=== PATIENT | female | born 1930 | race Caucasian/White ===

== ENCOUNTER 2017-02-19 18:55 | Observation (INO) | payer MEDICARE, MEDICAID ==
[2017-02-19] MEDS ORDERED: Sodium Chloride 0.9% 10 ML Syringe FLUSH PRN ×2 (20:08→20:25)
[2017-02-19] MEDS ORDERED: HYDROmorphone 0.5 MG/0.5 ML Syringe IVPUSH ONE (20:10)
[2017-02-19] MEDS ORDERED: Ondansetron 4 MG/2 ML SDV IVPUSH ONE (20:10)
--- NOTE | 2017-02-19 20:13 | EDM.PDOC ---
ED HPI GENERAL MEDICAL PROBLEM - General Chief Complaint: Gastrointestinal Problem Stated Complaint: VOMITING Time Seen by Provider: 02/19/17 20:01 Source of Information: Reports: Patient, Family, RN Notes Reviewed History Limitations: Reports: No Limitations - History of Present Illness INITIAL COMMENTS - FREE TEXT/NARRATIVE: 86-year-old female presents emergency department day complaint of nausea vomiting and abdominal pain, she states been ill for the last 3 days it has progressively getting worse initially she had bowel movements but that now has stopped denies any flatulence. Denies any fevers unable to keep food or water down Abdomen Pain Score (Numeric/FACES): 8 - Related Data Allergies Allergy/AdvReac Type Severity Reaction Status Date / Time Sulfa (Sulfonamide Allergy Intermediate Swelling Verified 02/23/15 06:44 Antibiotics) cefazolin Allergy Cannot Verified 02/21/15 11:11 Remember Penicillins Allergy Cannot Verified 02/21/15 11:11 Remember codeine AdvReac Intermediate Nausea and Verified 02/21/15 11:11 Vomiting cephalexin [Cephalexin] AdvReac Nausea Verified 02/21/15 11:11 Home Meds: Home Meds Insulin Glarg,Human.Rec.Analog [Lantus Solostar] 5 units SUBCUT DAILY 05/06/14 [ History] Lisinopril 5 mg PO DAILY 05/06/14 [History] Raloxifene [Evista] 60 mg PO DAILY 05/06/14 [History] Pantoprazole [Protonix] 40 mg PO DAILY #30 tab.cr 11/11/14 [Rx] Insulin Aspart [NovoLOG] 4 unit SQ QID PRN 02/21/15 [History] Omeprazole [Prilosec] 40 mg PO DAILY 02/21/15 [History] glyBURIDE [Micronase] 2.5 mg PO DAILY 02/21/15 [History] Past Medical History Gastrointestinal History: Reports: Other (See Below) Other Gastrointestinal History: hx of ulcer Genitourinary History: Reports: Urinary Incontinence 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: Musculoskeletal History: Reports: Fracture Other Musculoskeletal History: r knee fx Endocrine/Metabolic History: Reports: Diabetes, Type II Other Dermatologic History: "sore on shoulder that has been there for awhile" - Infectious Disease History Infectious Disease History: Reports: Chicken Pox, Measles, Mumps - Past Surgical History Other HEENT Surgeries/Procedures: teeth extraction GI Surgical History: Reports: Cholecystectomy, Colonoscopy Social & Family History - Tobacco Use Smoking Status *Q: Never Smoker Second Hand Smoke Exposure: No - Caffeine Use Caffeine Use: Reports: Coffee, Soda, Tea - Alcohol Use Days Per Week of Alcohol Use: 0 - Recreational Drug Use Recreational Drug Use: No ED ROS GENERAL - Review of Systems Review Of Systems: See Below Constitutional: Reports: Decreased Appetite. Denies: Fever, Chills HEENT: Reports: No Symptoms Respiratory: Reports: No Symptoms Cardiovascular: Reports: No Symptoms GI/Abdominal: Reports: Abdominal Pain, Nausea, Vomiting. Denies: Constipation, Diarrhea, Flatus : Reports: No Symptoms Musculoskeletal: Reports: No Symptoms Skin: Reports: No Symptoms ED EXAM, GI/ABD - Physical Exam Exam: See Below Text/Narrative:: General: Female, not in any distress, alert and oriented x3 HEENT: head is atraumatic normocephalic, eyes pupils equal round reactive to light, sclera clear no conjunctivitis appreciated. Ears tympanic membranes clear and [place] landmarks and light reflex are present bilaterally canals are clear. Nose no septal deviation, nares are clear, no blood present. Mouth mucosa is moist and pink no erythema or exudate noted in soft palate, tongue is midline uvula is midline, dentition is intact. Neck: Supple no thyromegaly no tracheal deviation. Nodes: Cervical nodes subclavicular nodes nontender no palpable lymphadenopathy noted. Lungs: clear to auscultation bilaterally with symmetrical respirations, no adventitious noise appreciated. CV: Regular rate and rhythm S1 and S2 appreciated no murmurs rubs or gallops noted. Abdomen: Soft, generalized tenderness to palpation, no palpable masses or organomegaly appreciated, no distention no guarding bowel sounds are absent, multiple surgical scars clean dry and intact. Neuro: Cranial nerves II through XII grossly intact Skin: Warm and dry, intact Extremities: No lower extremity edema appreciated, . Course - Vital Signs Last Recorded V/S: Last Vital Signs Temp 96.4 F 02/19/17 21:52 Pulse 81 02/19/17 21:52 Resp 16 02/19/17 21:52 BP 139/88 02/19/17 21:52 Pulse Ox 96 02/19/17 21:52 - Orders/Labs/Meds Orders: Active Orders 24 hr Category Date Time Status Peripheral IV Care [RC] . DIRECTED Care 02/19/17 20:09 Active Abdomen Pelvis w Cont [CT] Stat Exams 02/19/17 20:11 Ordered Abdomen Pelvis wo Cont [CT] Stat Exams 02/19/17 20:53 Taken CULTURE URINE [RM] Urgent Lab 02/19/17 22:44 Ordered Lactated Ringers [Ringers, Lactated] 1,000 ml Med 02/19/17 20:15 Active IV ASDIRECTED Lactated Ringers [Ringers, Lactated] 1,000 ml Med 02/19/17 22:48 Ordered IV BOLUS Sodium Chloride 0.9% [Saline Flush] Med 02/19/17 20:08 Active 10 ml FLUSH ASDIRECTED PRN Sodium Chloride 0.9% [Saline Flush] Med 02/19/17 20:25 Active 10 ml FLUSH ONETIME PRN Peripheral IV Insertion Adult [OM.PC] Urgent Oth 02/19/17 20:08 Ordered Medication Orders Lactated Ringer's (Ringers, Lactated) 1,000 mls @ 500 mls/hr IV ASDIRECTED TIMOTHY Last Admin: 02/19/17 20:28 Dose: 500 mls/hr Lactated Ringer's (Ringers, Lactated) 1,000 mls @ 500 mls/hr IV BOLUS ONE Stop: 02/20/17 00:47 Sodium Chloride (Saline Flush) 10 ml FLUSH ASDIRECTED PRN PRN Reason: Keep Vein Open Sodium Chloride (Saline Flush) 10 ml FLUSH ONETIME PRN PRN Reason: PER RADIOLOGY PROTOCOL Labs: Laboratory Tests 02/19/17 02/19/17 02/19/17 Range/Units 20:19 20:19 20:19 WBC 10.2 (4.5-11.0) K/uL RBC 4.54 (3.30-5.50) M/uL Hgb 11.2 L (12.0-15.0) g/dL Hct 36.8 (36.0-48.0) % MCV 81 (80-98) fL MCH 25 L (27-31) pg MCHC 30 L (32-36) % Plt Count 278 (150-400) K/uL Neut % (Auto) 81 H (36-66) % Lymph % (Auto) 13 L (24-44) % [place] % (Auto) 5 (2-6) % Eos % (Auto) 1 L (2-4) % Baso % (Auto) 0 (0-1) % Sodium 138 L (140-148) mmol/L Potassium 3.8 (3.6-5.2) mmol/L Chloride 100 (100-108) mmol/L Carbon Dioxide 31 (21-32) mmol/L Anion Gap 10.8 (5.0-14.0) mmol/L BUN 15 (7-18) mg/dL Creatinine 1.3 H (0.6-1.0) mg/dL Est Cr Clr Drug Dosing 22.73 mL/min Estimated GFR (MDRD) 39 L (>60) Glucose 148 H (74-106) mg/dL Lactic Acid 1.8 (0.4-2.0) mmol/L Calcium 8.6 (8.5-10.1) mg/dL Total Bilirubin 0.3 (0.2-1.0) mg/dL AST 13 L (15-37) U/L ALT 12 (12-78) U/L Alkaline Phosphatase 110 (46-116) U/L Total Protein 7.7 (6.4-8.2) g/dL Albumin 3.1 L (3.4-5.0) g/dL Globulin 4.6 H (2.3-3.5) g/dL Albumin/Globulin Ratio 0.7 L (1.2-2.2) Lipase 100 (73-393) U/L Urine Color Urine Appearance Urine pH (4.5-8.0) Ur Specific [place] (1.008-1.030) Urine Protein (NEGATIVE) mg/dL Urine Glucose (UA) (NEGATIVE) mg/dL Urine Ketones (NEGATIVE) mg/dL Urine Occult Blood (NEGATIVE) Urine Nitrite (NEGATIVE) Urine Bilirubin (NEGATIVE) Urine Urobilinogen (NORMAL) mg/dL Ur Leukocyte Esterase (NEGATIVE) Urine RBC (0-5) Urine WBC (0-5) Ur Epithelial Cells Amorphous Sediment Urine Bacteria Urine Mucus 02/19/17 Range/Units 20:52 WBC (4.5-11.0) K/uL RBC (3.30-5.50) M/uL Hgb (12.0-15.0) g/dL Hct (36.0-48.0) % MCV (80-98) fL MCH (27-31) pg MCHC (32-36) % Plt Count (150-400) K/uL Neut % (Auto) (36-66) % Lymph % (Auto) (24-44) % [place] % (Auto) (2-6) % Eos % (Auto) (2-4) % Baso % (Auto) (0-1) % Sodium (140-148) mmol/L Potassium (3.6-5.2) mmol/L Chloride (100-108) mmol/L Carbon Dioxide (21-32) mmol/L Anion Gap (5.0-14.0) mmol/L BUN (7-18) mg/dL Creatinine (0.6-1.0) mg/dL Est Cr Clr Drug Dosing mL/min Estimated GFR (MDRD) (>60) Glucose (74-106) mg/dL Lactic Acid (0.4-2.0) mmol/L Calcium (8.5-10.1) mg/dL Total Bilirubin (0.2-1.0) mg/dL AST (15-37) U/L ALT (12-78) U/L Alkaline Phosphatase (46-116) U/L Total Protein (6.4-8.2) g/dL Albumin (3.4-5.0) g/dL Globulin (2.3-3.5) g/dL Albumin/Globulin Ratio (1.2-2.2) Lipase (73-393) U/L Urine Color Yellow Urine Appearance Slightly cloudy Urine pH 7.0 (4.5-8.0) Ur Specific [place] 1.010 (1.008-1.030) Urine Protein Negative (NEGATIVE) mg/dL Urine Glucose (UA) Normal (NEGATIVE) mg/dL Urine Ketones Negative (NEGATIVE) mg/dL Urine Occult Blood Negative (NEGATIVE) Urine Nitrite Negative (NEGATIVE) Urine Bilirubin Negative (NEGATIVE) Urine Urobilinogen Normal (NORMAL) mg/dL Ur Leukocyte Esterase Large (NEGATIVE) Urine RBC 0-5 (0-5) Urine WBC 5-10 H (0-5) Ur Epithelial Cells Moderate Amorphous Sediment Rare Urine Bacteria Moderate Urine Mucus Few Meds: Medications Generic Name Dose Route Start Last Admin Trade Name Freq PRN Reason Stop Dose Admin Lactated Ringer's 1,000 mls @ 500 mls/hr 02/19/17 20:15 02/19/17 20:28 Ringers, Lactated IV 500 mls/hr ASDIRECTED TIMOTHY Administration Lactated Ringer's 1,000 mls @ 500 mls/hr 02/19/17 22:48 Ringers, Lactated IV 02/20/17 00:47 BOLUS ONE Sodium Chloride 10 ml 02/19/17 20:08 Saline Flush FLUSH ASDIRECTED PRN Keep Vein Open Sodium Chloride 10 ml 02/19/17 20:25 Saline Flush FLUSH ONETIME PRN PER RADIOLOGY PROTOCOL Discontinued Medications Generic Name Dose Route Start Last Admin Trade Name Freq PRN Reason Stop Dose Admin Hydromorphone HCl 0.5 mg 02/19/17 20:10 02/19/17 20:29 Dilaudid IVPUSH 02/19/17 20:11 0.5 mg ONETIME ONE Administration Sodium Chloride 70 mls @ 3 mls/sec 02/19/17 20:25 Normal Saline IV 02/19/17 20:26 ONETIME ONE Iopamidol 81 ml 02/19/17 20:25 Isovue-300 (61%) IV 02/19/17 20:26 . DIRECTED PRN RADIOLOGY EXAM Ondansetron HCl 4 mg 02/19/17 20:10 02/19/17 20:29 Zofran IVPUSH 02/19/17 20:11 4 mg ONETIME ONE Administration Prochlorperazine Edisylate 5 mg 02/19/17 22:48 Compazine IVPUSH 02/19/17 22:49 ONETIME ONE Departure - Departure Time of Disposition: 23:01 Disposition: Admitted As Inpatient 67 Condition: good Clinical Impression: Vomiting UTI (urinary tract infection) Qualifiers: Urinary tract infection type: acute cystitis Hematuria presence: without hematuria Qualified Code(s): N30.00 - Acute cystitis without hematuria - Discharge Information Forms: ED Department Discharge - My Orders Last 24 Hours: My Active Orders 02/19/17 20:08 Sodium Chloride 0.9% [Saline Flush] 10 ml FLUSH ASDIRECTED PRN Peripheral IV Insertion Adult [OM.PC] Urgent 02/19/17 20:09 Peripheral IV Care [RC] . DIRECTED 02/19/17 20:11 Abdomen Pelvis w Cont [CT] Stat 02/19/17 20:15 Lactated Ringers [Ringers, Lactated] 1,000 ml IV ASDIRECTED 02/19/17 20:25 Sodium Chloride 0.9% [Saline Flush] 10 ml FLUSH ONETIME PRN 02/19/17 20:53 Abdomen Pelvis wo Cont [CT] Stat 02/19/17 22:44 CULTURE URINE [RM] Urgent 02/19/17 22:48 Lactated Ringers [Ringers, Lactated] 1,000 ml IV BOLUS - Assessment/Plan Last 24 Hours: My Active Orders 02/19/17 20:08 Sodium Chloride 0.9% [Saline Flush] 10 ml FLUSH ASDIRECTED PRN Peripheral IV Insertion Adult [OM.PC] Urgent 02/19/17 20:09 Peripheral IV Care [RC] . DIRECTED 02/19/17 20:11 Abdomen Pelvis w Cont [CT] Stat 02/19/17 20:15 Lactated Ringers [Ringers, Lactated] 1,000 ml IV ASDIRECTED 02/19/17 20:25 Sodium Chloride 0.9% [Saline Flush] 10 ml FLUSH ONETIME PRN 02/19/17 20:53 Abdomen Pelvis wo Cont [CT] Stat 02/19/17 22:44 CULTURE URINE [RM] Urgent 02/19/17 22:48 Lactated Ringers [Ringers, Lactated] 1,000 ml IV BOLUS Plan: Assessment Acuity = [acute Site and laterality = nausea and vomiting with suspicion for urinary tract infection complicated patient with known history of diabetes mellitus type 2 Etiology = unclear etiology Manifestations = none Location of injury = home Lab values = hemoglobin low 11.2 consistent normochromic anemia sodium low at 138 consistent with hyponatremia creatinine elevated at 1.3 consistent acute renal failure stage GIII B. albumin low at 2.1 consistent hypoalbuminemia urinalysis reveals 5-10 WBCs consistent with pyuria cultures pending Plan Discuss case with hospitalist agreed to, and evaluate the patient ED for admission Patient was in agreement with the plan all questions were answered, . This note was dictated using [facility] voice recognition software please call with any questions.
[2017-02-19] MEDS ORDERED: Lactated Ringers 1,000 ML IV SCH (20:15)
[2017-02-19] MEDS ORDERED: Iopamidol 612 MG/ML 100 ML Bottle IV PRN (20:25)
[2017-02-19] MEDS ORDERED: Lactated Ringers 1,000 ML IV ONE (22:48)
[2017-02-19] MEDS ORDERED: Prochlorperazine 10 MG/2 ML SDV IVPUSH ONE (22:48)
[2017-02-20] MEDS ORDERED: oxyCODONE 5 MG Tab PO PRN (01:56)
[2017-02-20] MEDS ORDERED: Acetaminophen 325 MG Tab PO PRN (01:56)
[2017-02-20] MEDS ORDERED: Magnesium Hydroxide 400 MG/5 ML Susp 30 ML Cup PO PRN (01:56)
[2017-02-20] MEDS ORDERED: LORazepam 2 MG/ML MDV IV PRN (01:56)
[2017-02-20] MEDS ORDERED: Morphine 2 MG/ML Syringe IVPUSH PRN (01:56)
[2017-02-20] MEDS ORDERED: Docusate Sodium 100 MG Cap PO PRN (01:56)
[2017-02-20] MEDS ORDERED: Ondansetron 4 MG/2 ML SDV IVPUSH PRN (01:56)
[2017-02-20] MEDS ORDERED: Sodium Chloride 0.9% 10 ML Syringe FLUSH PRN (01:56)
[2017-02-20] MEDS ORDERED: Insulin Aspart 100 Units/ML 3 ML Pen SUBCUT ONE (02:00)
[2017-02-20] MEDS ORDERED: Insulin Aspart 100 Units/ML 3 ML Pen SUBCUT PRN (07:41)
[2017-02-20] MEDS: Raloxifene 60 MG Tab PO SCH (08:42)
[2017-02-20] MEDS ORDERED: Pantoprazole 40 MG Vial IV SCH (09:00)
[2017-02-20] MEDS ORDERED: Insulin Detemir 100 Units/ML 3 ML Pen SUBCUT SCH (09:00)
--- NOTE | 2017-02-20 09:15 | PCM.HP ---
H&P History of Present Illness - General Date of Service: 02/19/17 Admit Problem/Dx: Admission Diagnosis/Problem Admission Diagnosis/Problem Gastroenteritis Source of Information: Patient History Limitations: Reports: No Limitations - History of Present Illness Initial Comments - Free Text/Narative: 86year old female presents to ER with complaints of nausea, vomiting and abdominal pain, she states has been ill for the past 3 days, it has progressively getting worse. Initially she had a bowel movement but that now has stopped denies any flatulence. denies any fever, unable to keep food or water down. abdomen pelvis CT negative for acute process. labs concerns for possible UTI, cultures pending. plan to admit overnight for monitoring. given 2 liter IV fluids in ER. will salin lock, allow to rest the remainder of night. re-assess in am. Patient agrees with plan of care. Onset of Symptoms: Reports: Gradual Duration of Symptoms: Reports: Constant, Getting Worse Location: Reports: Generalized Improves with: Reports: None Worsens with: Reports: Eating Associated Symptoms: Reports: Nausea/Vomiting Abdomen Pain Score (Numeric/FACES): 0 - Related Data Allergies/Adverse Reactions: Allergies Allergy/AdvReac Type Severity Reaction Status Date / Time Sulfa (Sulfonamide Allergy Intermediate Swelling Verified 02/23/15 06:44 Antibiotics) cefazolin Allergy Cannot Verified 02/21/15 11:11 Remember Penicillins Allergy Cannot Verified 02/21/15 11:11 Remember codeine AdvReac Intermediate Nausea and Verified 02/21/15 11:11 Vomiting cephalexin [Cephalexin] AdvReac Nausea Verified 02/21/15 11:11 Home Medications: Home Meds Insulin Glarg,Human.Rec.Analog [Lantus Solostar] 5 units SUBCUT DAILY 05/06/14 [ History] Lisinopril 5 mg PO DAILY 05/06/14 [History] Raloxifene [Evista] 60 mg PO DAILY 05/06/14 [History] Pantoprazole [Protonix] 40 mg PO DAILY #30 tab.cr 11/11/14 [Rx] Insulin Aspart [NovoLOG] 4 unit SQ QID PRN 02/21/15 [History] Omeprazole [Prilosec] 40 mg PO DAILY 02/21/15 [History] glyBURIDE [Micronase] 2.5 mg PO DAILY 02/21/15 [History] Past Medical History Gastrointestinal History: Reports: Other (See Below) Other Gastrointestinal History: hx of ulcer Genitourinary History: Reports: Urinary 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: Musculoskeletal History: Reports: Fracture Other Musculoskeletal History: r knee fx Endocrine/Metabolic History: Reports: Diabetes, Type II Other Dermatologic History: "sore on shoulder that has been there for awhile" - Infectious Disease History Infectious Disease History: Reports: Chicken Pox, Measles, Mumps - Past Surgical History Other HEENT Surgeries/Procedures: teeth extraction GI Surgical History: Reports: Cholecystectomy, Colonoscopy Social & Family History - Family History Family Medical History: Noncontributory - Tobacco Use Smoking Status *Q: Never Smoker Second Hand Smoke Exposure: No - Caffeine Use Caffeine Use: Reports: Coffee - Alcohol Use Days Per Week of Alcohol Use: 0 - Recreational Drug Use Recreational Drug Use: No H&P Review of Systems - Review of Systems: Review Of Systems: See Below General: Reports: Malaise, Decreased Appetite (unable to eat due to nausea and vomiting) HEENT: Reports: No Symptoms Pulmonary: Reports: No Symptoms Gastrointestinal: Reports: Abdominal Pain, Nausea, Vomiting Genitourinary: Reports: No Symptoms Musculoskeletal: Reports: No Symptoms Skin: Reports: No Symptoms Psychiatric: Reports: No Symptoms Neurological: Reports: No Symptoms Hematologic/Lymphatic: Reports: No Symptoms Immunologic: Reports: No Symptoms Exam - Exam Exam: See Below - Vital Signs Vital Signs: Last Vital Signs Temp 36.3 C 02/20/17 07:15 Pulse 68 02/20/17 07:15 Resp 17 02/20/17 07:15 BP 166/77 H 02/20/17 07:15 Pulse Ox 94 L 02/20/17 07:15 Weight: 54.7 kg - Exam Quality Assessment: Supplemental Oxygen General: Alert, Oriented, Cooperative HEENT: PERRLA Neck: Supple, Trachea Midline, 2 Lungs: Clear to Auscultation, Normal Respiratory Effort Abdomen: Normal Bowel Sounds, Soft, Tenderness (generalized) (Female) Exam: Deferred Rectal (Female) Exam: Deferred Back Exam: Normal Inspection, Full Range of Motion, NT Extremities: 3, Normal Inspection, 10 Neurological: Cranial Nerves Intact Neuro Extensive - Mental Status: Alert, Oriented x3, Normal Mood/Affect, Normal Cognition Psychiatric: Alert, Normal Affect, Normal Mood - Patient Data Lab Results last 24 hrs: Laboratory Results - last 24 hr 02/20/17 02/20/17 Range/Units 05:40 05:40 WBC 7.4 (4.5-11.0) K/uL RBC 3.93 (3.30-5.50) M/uL Hgb 9.9 L (12.0-15.0) g/dL Hct 32.6 L (36.0-48.0) % MCV 83 (80-98) fL MCH 25 L (27-31) pg MCHC 30 L (32-36) % Plt Count 217 (150-400) K/uL Neut % (Auto) 61 (36-66) % Lymph % (Auto) 30 (24-44) % [place] % (Auto) 8 H (2-6) % Eos % (Auto) 1 L (2-4) % Baso % (Auto) 0 (0-1) % Sodium 140 (140-148) mmol/L Potassium 3.9 (3.6-5.2) mmol/L Chloride 104 (100-108) mmol/L Carbon Dioxide 31 (21-32) mmol/L Anion Gap 5.1 (5.0-14.0) mmol/L BUN 12 (7-18) mg/dL Creatinine 1.2 H (0.6-1.0) mg/dL Est Cr Clr Drug Dosing 24.62 mL/min Estimated GFR (MDRD) 43 L (>60) Glucose 113 H (74-106) mg/dL Calcium 8.2 L (8.5-10.1) mg/dL Result Diagrams: 02/20/17 05:40 02/20/17 05:40 *Q Meaningful Use (ADM) - VTE *Q VTE Criteria *Q: - Stroke *Q Stroke Criteria *Q: - AMI *Q AMI Criteria *Q: - Problem List (1) Vomiting SNOMED Code(s): 809208863 ICD Code: R11.10 - VOMITING, UNSPECIFIED Status: Acute Priority: High Current Visit: Yes (2) Diabetes mellitus type 2 SNOMED Code(s): 50682494 ICD Code: E11.9 - TYPE 2 DIABETES MELLITUS WITHOUT COMPLICATIONS Status: Chronic Priority: High Current Visit: No Problem List Initiated/Reviewed/Updated: Yes Orders Last 24hrs: Active Orders 24 hr Category Date Time Status Patient Status [ADT] Routine ADT 02/20/17 01:56 Active Diabetes Education [RC] Click To Edit Care 02/20/17 01:56 Active Fecal Occult Blood Collection [RC] ASDIRECTED Care 02/20/17 01:56 Active Oxygen Therapy [RC] PRN Care 02/20/17 01:56 Active Up With Assistance [RC] ASDIRECTED Care 02/20/17 01:56 Active VTE/DVT Education [RC] Per Unit Routine Care 02/20/17 01:56 Active Vital Signs [RC] Q4H Care 02/20/17 01:56 Active Nothing per Oral After Midnight Diet [DIET] Diet 02/20/17 Breakfast Active GLUCOSE POC LAB TO COLLECT [POC] QIDACANDBED Lab 02/20/17 11:30 Ordered GLUCOSE POC LAB TO COLLECT [POC] QIDACANDBED Lab 02/20/17 16:30 Ordered GLUCOSE POC LAB TO COLLECT [POC] QIDACANDBED Lab 02/20/17 21:00 Ordered Acetaminophen [Tylenol] Med 02/20/17 01:56 Active 650 mg PO Q4H PRN Docusate Sodium [Colace] Med 02/20/17 01:56 Active 100 mg PO BID PRN Docusate Sodium/Sennosides [Senna Plus] Med 02/20/17 01:56 Active 1 tab PO BID PRN Insulin Aspart [NovoLOG] Med 02/20/17 07:41 Active 4 unit SUBCUT QID PRN Insulin Detemir [Levemir] Med 02/20/17 09:00 Active 5 unit SUBCUT DAILY LORazepam [Ativan] Med 02/20/17 01:56 Active 0.5 mg IV Q6H PRN Magnesium Hydroxide [Milk of Magnesia] Med 02/20/17 01:56 Active 30 ml PO Q12H PRN Morphine Med 02/20/17 01:56 Active 2 mg IVPUSH Q2H PRN Ondansetron [Zofran] Med 02/20/17 01:56 Active 4 mg IVPUSH Q4H PRN Pantoprazole [ProTONIX IV] Med 02/20/17 09:00 Active 40 mg IV DAILY Raloxifene [Evista] Med 02/20/17 09:00 Active 60 mg PO DAILY Sodium Chloride 0.9% [Saline Flush] Med 02/20/17 01:56 Active 10 ml FLUSH ASDIRECTED PRN glyBURIDE [Micronase] Med 02/20/17 09:00 Active 2.5 mg PO DAILY oxyCODONE Med 02/20/17 01:56 Active 5 mg PO Q4H PRN Saline Lock Insert [OM.PC] Routine Oth 02/20/17 01:56 Ordered Sequential Compression Device [OM.PC] Per Unit Routine Oth 02/20/17 01:56 Ordered Resuscitation Status Routine Resus Stat 02/20/17 01:28 Ordered Medication Orders Acetaminophen (Tylenol) 650 mg PO Q4H PRN PRN Reason: Pain (Mild 1-3)/fever Docusate Sodium (Colace) 100 mg PO BID PRN PRN Reason: Constipation Glyburide (Micronase) 2.5 mg PO DAILY [facility] Last Admin: 02/20/17 08:42 Dose: 2.5 mg Insulin Aspart (Novolog) 4 unit SUBCUT QID PRN PRN Reason: Hyperglycemia Insulin Detemir (Levemir) 5 unit SUBCUT DAILY [facility] Lorazepam (Ativan) 0.5 mg IV Q6H PRN PRN Reason: Nausea/Vomiting Magnesium Hydroxide (Milk Of Magnesia) 30 ml PO Q12H PRN PRN Reason: Constipation Morphine Sulfate (Morphine) 2 mg IVPUSH Q2H PRN PRN Reason: Pain (severe 7-10) Ondansetron HCl (Zofran) 4 mg IVPUSH Q4H PRN PRN Reason: Nausea/Vomiting Oxycodone HCl (Oxycodone) 5 mg PO Q4H PRN PRN Reason: Pain (moderate 4-6) Pantoprazole Sodium (Protonix Iv) 40 mg IV DAILY [facility] Last Admin: 02/20/17 08:42 Dose: 40 mg Raloxifene HCl (Evista) 60 mg PO DAILY [facility] Last Admin: 02/20/17 08:42 Dose: 60 mg Senna/Docusate Sodium (Senna Plus) 1 tab PO BID PRN PRN Reason: Constipation Sodium Chloride (Saline Flush) 10 ml FLUSH ASDIRECTED PRN PRN Reason: Keep Vein Open Assessment/Plan Comment:: ASSESSMENT / PLAN 86year old female presents to ER with complaints of nausea, vomiting and abdominal pain, she states has been ill for the past 3 days, it has progressively getting worse. Initially she had a bowel movement but that now has stopped denies any flatulence. denies any fever, unable to keep food or water down. abdomen pelvis CT negative for acute process. labs concerns for possible UTI, cultures pending. plan to admit overnight for monitoring. given 2 liter IV fluids in ER. will salin lock, allow to rest the remainder of night. re-assess in am. Patient agrees with plan of care. Plan Gastroenteritis, vomiting -Admit to 2 [place] for further monitoring -IV fluids 2 liter given in ER, will saline lock -Advise to notify nurses of any chest pain or other symptoms -And a.m. labs: CBC, BMP, urine culture pending Diabetes Type 2 -order insulin with sliding scale coverage. -glucose testing before meals and at bedtime Maintenance issues -Orders home meds: -Nutrition: diabetic diet -Viramontes catheter not indicated at this time -DVT: SCD -GI Prophalaxis; Protonix 40mg daily -referral to OT for discharge planning CODE STATUS: DNR/DNI Admission status: Admit to Observation -I expect this patient to stay less than 24 hours, not to exceed 96 hours for evaluation and management of this problem. Disposition; home with family Primary care provider: Dr. Silva
[2017-02-20] MEDS: Insulin Detemir 100 Units/ML 3 ML Pen SUBCUT SCH (10:47)
[2017-02-20] MEDS ORDERED: Glucose Gel 15 GM in 37.5 GM Tube PO PRN (11:45)
[2017-02-20] MEDS ORDERED: 50% Dextrose in Water 50 ML Syringe IV PRN (11:45)
[2017-02-20] MEDS: Insulin Aspart 100 Units/ML 3 ML Pen SUBCUT SCH ×2 (12:07→21:24)
[2017-02-20] MEDS: Nystatin Susp 100,000 Unit/ML 5 ML UD Cup PO SCH ×2 (16:57→21:20)
--- NOTE | 2017-02-20 17:30 | PCM.PN ---
- General Info Date of Service: 02/20/17 Functional Status: Reports: pain controlled, tolerating diet, ambulating, urinating - Review of Systems General: Reports: No Symptoms Pulmonary: Reports: no symptoms Cardiovascular: Reports: No Symptoms Gastrointestinal: Denies: Abdominal pain, Diarrhea, Nausea, Vomiting Systems Review Comment:: This patient is an 86-year-old woman who was admitted through the emergency department earlier today with nausea, and vomiting. She denies any significant abdominal pain and not had diarrhea. Previous history includes an episode of yeast esophagitis causing similar symptoms. Nausea and vomiting have resolved and she is tolerated a advance diet through the day thus far. Vital signs have been stable and she has remained afebrile. - Patient Data Vitals - most recent: Last Vital Signs Temp 99.1 F 02/20/17 14:12 Pulse 80 02/20/17 14:12 Resp 16 02/20/17 14:12 BP 162/73 H 02/20/17 14:12 Pulse Ox 90 L 02/20/17 14:12 Weight - most recent: 120 lb 9.486 oz I&O - last 24 hours: Intake & Output 02/20/17 02/20/17 02/20/17 06:59 14:59 22:59 Intake Total 118 Output Total 300 200 Balance -300 -200 118 Lab Results last 24 hrs: Laboratory Results - last 24 hr 02/20/17 02/20/17 Range/Units 05:40 05:40 WBC 7.4 (4.5-11.0) K/uL RBC 3.93 (3.30-5.50) M/uL Hgb 9.9 L (12.0-15.0) g/dL Hct 32.6 L (36.0-48.0) % MCV 83 (80-98) fL MCH 25 L (27-31) pg MCHC 30 L (32-36) % Plt Count 217 (150-400) K/uL Neut % (Auto) 61 (36-66) % Lymph % (Auto) 30 (24-44) % [place] % (Auto) 8 H (2-6) % Eos % (Auto) 1 L (2-4) % Baso % (Auto) 0 (0-1) % Sodium 140 (140-148) mmol/L Potassium 3.9 (3.6-5.2) mmol/L Chloride 104 (100-108) mmol/L Carbon Dioxide 31 (21-32) mmol/L Anion Gap 5.1 (5.0-14.0) mmol/L BUN 12 (7-18) mg/dL Creatinine 1.2 H (0.6-1.0) mg/dL Est Cr Clr Drug Dosing 24.62 mL/min Estimated GFR (MDRD) 43 L (>60) Glucose 113 H (74-106) mg/dL Calcium 8.2 L (8.5-10.1) mg/dL Med Orders - Current: Current Medications Acetaminophen (Tylenol) 650 mg PO Q4H PRN PRN Reason: Pain (Mild 1-3)/fever Dextrose (Glutose 15) 15 gm PO ONETIME PRN PRN Reason: Hypoglycemia Dextrose/Water (Dextrose 50% In Water) 50 ml IV ONETIME PRN PRN Reason: Hypoglycemia Docusate Sodium (Colace) 100 mg PO BID PRN PRN Reason: Constipation Glyburide (Micronase) 2.5 mg PO DAILY [facility] Last Admin: 02/20/17 08:42 Dose: 2.5 mg Insulin Aspart (Novolog) 0 unit SUBCUT ASDIRECTED [facility] PRN Reason: Protocol Last Admin: 02/20/17 12:07 Dose: 1 unit Insulin Detemir (Levemir) 5 unit SUBCUT DAILY [facility] Last Admin: 02/20/17 10:47 Dose: 5 unit Lorazepam (Ativan) 0.5 mg IV Q6H PRN PRN Reason: Nausea/Vomiting Magnesium Hydroxide (Milk Of Magnesia) 30 ml PO Q12H PRN PRN Reason: Constipation Morphine Sulfate (Morphine) 2 mg IVPUSH Q2H PRN PRN Reason: Pain (severe 7-10) Nystatin (Mycostatin) 5 ml PO QID [facility] Last Admin: 02/20/17 16:57 Dose: 5 ml Ondansetron HCl (Zofran) 4 mg IVPUSH Q4H PRN PRN Reason: Nausea/Vomiting Oxycodone HCl (Oxycodone) 5 mg PO Q4H PRN PRN Reason: Pain (moderate 4-6) Pantoprazole Sodium (Protonix Iv) 40 mg IV BID [facility] Raloxifene HCl (Evista) 60 mg PO DAILY [facility] Last Admin: 02/20/17 08:42 Dose: 60 mg Senna/Docusate Sodium (Senna Plus) 1 tab PO BID PRN PRN Reason: Constipation Sodium Chloride (Saline Flush) 10 ml FLUSH ASDIRECTED PRN PRN Reason: Keep Vein Open Discontinued Medications Hydromorphone HCl (Dilaudid) 0.5 mg IVPUSH ONETIME ONE Stop: 02/19/17 20:11 Last Admin: 02/19/17 20:29 Dose: 0.5 mg Lactated Ringer's (Ringers, Lactated) 1,000 mls @ 500 mls/hr IV ASDIRECTED [facility] Last Admin: 02/19/17 20:28 Dose: 500 mls/hr Sodium Chloride (Normal Saline) 70 mls @ 3 mls/sec IV ONETIME ONE Stop: 02/19/17 20:26 Last Admin: 02/20/17 03:01 Dose: Not Given Lactated Ringer's (Ringers, Lactated) 1,000 mls @ 500 mls/hr IV BOLUS ONE Stop: 02/20/17 00:47 Last Admin: 02/19/17 23:13 Dose: 500 mls/hr Insulin Aspart (Novolog) 4 unit SUBCUT QID PRN PRN Reason: Hyperglycemia Iopamidol (Isovue-300 (61%)) 81 ml IV . DIRECTED PRN PRN Reason: RADIOLOGY EXAM Stop: 02/19/17 20:26 Ondansetron HCl (Zofran) 4 mg IVPUSH ONETIME ONE Stop: 02/19/17 20:11 Last Admin: 02/19/17 20:29 Dose: 4 mg Pantoprazole Sodium (Protonix Iv) 40 mg IV DAILY [facility] Last Admin: 02/20/17 08:42 Dose: 40 mg Prochlorperazine Edisylate (Compazine) 5 mg IVPUSH ONETIME ONE Stop: 02/19/17 22:49 Last Admin: 02/19/17 23:14 Dose: 5 mg Sodium Chloride (Saline Flush) 10 ml FLUSH ASDIRECTED PRN PRN Reason: Keep Vein Open Sodium Chloride (Saline Flush) 10 ml FLUSH ONETIME PRN PRN Reason: PER RADIOLOGY PROTOCOL - Exam Quality Assessment: DVT prophylaxis General: alert, oriented, cooperative, no acute distress Lungs: Clear to auscultation, Normal respiratory effort Cardiovascular: Regular Rate, Regular Rhythm, No Murmurs Abdomen: bowel sounds present, soft, no tenderness, no distension Extremities: no edema Skin: warm, dry, intact - Problem List Review Problem List Initiated/Reviewed/Updated: Yes - My Orders Last 24 Hours: My Active Orders 02/20/17 11:45 Blood Glucose Check, Bedside [RC] QIDACANDBED Notify Provider [RC] PRN Dextrose 50% in Water 50 ml IV ONETIME PRN Dextrose [Glutose 15] 15 gm PO ONETIME PRN Insulin Aspart [NovoLOG] See Protocol SUBCUT ASDIRECTED 02/20/17 11:46 Communication Order [RC] ASDIRECTED 02/20/17 16:00 Nystatin [Mycostatin] 5 ml PO QID 02/20/17 21:00 Pantoprazole [ProTONIX IV] 40 mg IV BID 02/20/17 Lunch Regular Diet [DIET] 02/21/17 05:00 BASIC METABOLIC PANEL,BMP [CHEM] Timed CBC WITH AUTO DIFF [HEME] Timed 02/21/17 07:30 GLUCOSE POC LAB TO COLLECT [POC] QIDACANDBED 02/21/17 11:30 GLUCOSE POC LAB TO COLLECT [POC] QIDACANDBED 02/21/17 16:30 GLUCOSE POC LAB TO COLLECT [POC] QIDACANDBED 02/21/17 21:00 GLUCOSE POC LAB TO COLLECT [POC] QIDACANDBED 02/22/17 07:30 GLUCOSE POC LAB TO COLLECT [POC] QIDACANDBED 02/22/17 11:30 GLUCOSE POC LAB TO COLLECT [POC] QIDACANDBED 02/22/17 16:30 GLUCOSE POC LAB TO COLLECT [POC] QIDACANDBED 02/22/17 21:00 GLUCOSE POC LAB TO COLLECT [POC] QIDACANDBED 02/23/17 07:30 GLUCOSE POC LAB TO COLLECT [POC] QIDACANDBED 02/23/17 11:30 GLUCOSE POC LAB TO COLLECT [POC] QIDACANDBED 02/23/17 16:30 GLUCOSE POC LAB TO COLLECT [POC] QIDACANDBED 02/23/17 21:00 GLUCOSE POC LAB TO COLLECT [POC] QIDACANDBED 02/24/17 07:30 GLUCOSE POC LAB TO COLLECT [POC] QIDACANDBED 02/24/17 11:30 GLUCOSE POC LAB TO COLLECT [POC] QIDACANDBED 02/24/17 16:30 GLUCOSE POC LAB TO COLLECT [POC] QIDACANDBED 02/24/17 21:00 GLUCOSE POC LAB TO COLLECT [POC] QIDACANDBED 02/25/17 07:30 GLUCOSE POC LAB TO COLLECT [POC] QIDACANDBED 02/25/17 11:30 GLUCOSE POC LAB TO COLLECT [POC] QIDACANDBED 02/25/17 16:30 GLUCOSE POC LAB TO COLLECT [POC] QIDACANDBED 02/25/17 21:00 GLUCOSE POC LAB TO COLLECT [POC] QIDACANDBED 02/26/17 07:30 GLUCOSE POC LAB TO COLLECT [POC] QIDACANDBED 02/26/17 11:30 GLUCOSE POC LAB TO COLLECT [POC] QIDACANDBED 02/26/17 16:30 GLUCOSE POC LAB TO COLLECT [POC] QIDACANDBED 02/26/17 21:00 GLUCOSE POC LAB TO COLLECT [POC] QIDACANDBED 02/27/17 07:30 GLUCOSE POC LAB TO COLLECT [POC] QIDACANDBED 02/27/17 11:30 GLUCOSE POC LAB TO COLLECT [POC] QIDACANDBED 02/27/17 16:30 GLUCOSE POC LAB TO COLLECT [POC] QIDACANDBED 02/27/17 21:00 GLUCOSE POC LAB TO COLLECT [POC] QIDACANDBED 02/28/17 07:30 GLUCOSE POC LAB TO COLLECT [POC] QIDACANDBED 02/28/17 11:30 GLUCOSE POC LAB TO COLLECT [POC] QIDACANDBED 02/28/17 16:30 GLUCOSE POC LAB TO COLLECT [POC] QIDACANDBED 02/28/17 21:00 GLUCOSE POC LAB TO COLLECT [POC] QIDACANDBED 03/01/17 07:30 GLUCOSE POC LAB TO COLLECT [POC] QIDACANDBED 03/01/17 11:30 GLUCOSE POC LAB TO COLLECT [POC] QIDACANDBED 03/01/17 16:30 GLUCOSE POC LAB TO COLLECT [POC] QIDACANDBED 03/01/17 21:00 GLUCOSE POC LAB TO COLLECT [POC] QIDACANDBED 03/02/17 07:30 GLUCOSE POC LAB TO COLLECT [POC] QIDACANDBED 03/02/17 11:30 GLUCOSE POC LAB TO COLLECT [POC] QIDACANDBED 03/02/17 16:30 GLUCOSE POC LAB TO COLLECT [POC] QIDACANDBED 03/02/17 21:00 GLUCOSE POC LAB TO COLLECT [POC] QIDACANDBED 03/03/17 07:30 GLUCOSE POC LAB TO COLLECT [POC] QIDACANDBED 03/03/17 11:30 GLUCOSE POC LAB TO COLLECT [POC] QIDACANDBED - Plan Plan:: ASSESSMENT / PLAN VIRAL GASTROENTERITIS-symptoms have significantly improved since admission and she has been tolerating a diet -saline lock -Anticipate discharge to home tomorrow she continues to tolerate her diet -Nystatin swish and swallow or times daily -Protonix 40 mg IV twice daily Diabetes Type 2 -order insulin with sliding scale coverage. -glucose testing before meals and at bedtime Maintenance issues -Orders home meds: -Nutrition: diabetic diet -Viramontes catheter not indicated at this time -DVT: SCD -GI Prophalaxis; Protonix 40mg -referral to OT for discharge planning CODE STATUS: DNR/DNI Admission status: Admit to Observation -I expect this patient to stay less than 24 hours, not to exceed 96 hours for evaluation and management of this problem. Disposition; home with family Primary care provider: Dr. Silva
[2017-02-20] MEDS: Pantoprazole 40 MG Vial IV SCH (21:19)
[2017-02-21] MEDS: Nystatin Susp 100,000 Unit/ML 5 ML UD Cup PO SCH ×2 (06:21→09:59)
[2017-02-21] MEDS: Insulin Detemir 100 Units/ML 3 ML Pen SUBCUT SCH (08:24)
[2017-02-21] MEDS: Insulin Aspart 100 Units/ML 3 ML Pen SUBCUT SCH (08:26)
[2017-02-21] MEDS: Raloxifene 60 MG Tab PO SCH (08:32)
[2017-02-21] MEDS: Pantoprazole 40 MG Vial IV SCH (08:33)
[2017-02-21 10:44] VITALS: BP 170/81
--- NOTE | 2017-02-21 13:28 | PCM.DCSUM1 ---
Discharge Summary - Hospital Course Brief History: This patient is an 86-year-old woman who was admitted through the emergency department with nausea and vomiting secondary to viral gastroenteritis. - Discharge Data Discharge Date: 02/21/17 Discharge Disposition: Home, Self-Care 01 Condition: Fair - Discharge Diagnosis/Problem(s) (1) Viral gastroenteritis SNOMED Code(s): 128837602 ICD Code: A08.4 - VIRAL INTESTINAL INFECTION, UNSPECIFIED Status: Acute Current Visit: Yes (2) Diabetes mellitus type 2 SNOMED Code(s): 55582888 ICD Code: E11.9 - TYPE 2 DIABETES MELLITUS WITHOUT COMPLICATIONS Status: Chronic Priority: High Current Visit: No - Patient Summary/Data Hospital Course: Ms. Moscoso is an 86-year-old woman who developed symptoms of nausea and vomiting prior to admission. On evaluation emergency room Department no significant abnormalities were identified, she was admitted to the hospital for further evaluation and management. She received IV fluids for hydration as well as antiemetic therapy. There was no significant diarrhea or temperature elevation. She was given IV Protonix in addition to the IV fluids. She improved significantly and by the time of discharge had no significant symptoms of nausea vomiting or abdominal pain. She will resume her usual medications. Her diabetes was managed during hospital stay and followed with 4 times a day glucometers as well as sliding scale NovoLog insulins. Activity will be as tolerated and she will resume her regular diabetic diet as tolerated. Followup appointment will be scheduled with her primary care provider Dr. Silva within one week. - Patient Instructions Diet: Usual Diet as Tolerated Activity: As Tolerated Other/Special Instructions: Please schedule followup appointment with Dr. Silva within one week. - Discharge Plan Home Medications: Home Meds Insulin Glarg,Human.Rec.Analog [Lantus Solostar] 5 units SUBCUT DAILY 05/06/14 [ History] Lisinopril 5 mg PO DAILY 05/06/14 [History] Raloxifene [Evista] 60 mg PO DAILY 05/06/14 [History] Pantoprazole [ProTONIX] 40 mg PO DAILY #30 tab.cr 11/11/14 [Rx] Insulin Aspart [NovoLOG] 4 unit SQ QID PRN 02/21/15 [History] Omeprazole [Prilosec] 40 mg PO DAILY 02/21/15 [History] glyBURIDE [Micronase] 2.5 mg PO DAILY 02/21/15 [History] Referrals: Rowdy Silva MD [Primary Care Provider] - - Patient Data Vitals - Most Recent: Last Vital Signs Temp 97.3 F 02/21/17 10:38 Pulse 67 02/21/17 10:38 Resp 18 02/21/17 10:38 BP 170/81 H 02/21/17 10:38 Pulse Ox 95 02/21/17 10:38 Weight - Most Recent: 120 lb 9.486 oz I&O - Last 24 hours: Intake & Output 02/20/17 02/21/17 02/21/17 22:59 06:59 14:59 Intake Total 358 240 550 Output Total 500 Balance 358 -260 550 Lab Results - Last 24 hrs: Laboratory Results - last 24 hr 02/21/17 02/21/17 Range/Units 05:00 05:00 WBC 6.2 (4.5-11.0) K/uL RBC 3.76 (3.30-5.50) M/uL Hgb 9.5 L (12.0-15.0) g/dL Hct 31.3 L (36.0-48.0) % MCV 83 (80-98) fL MCH 25 L (27-31) pg MCHC 30 L (32-36) % Plt Count 205 (150-400) K/uL Neut % (Auto) 56 (36-66) % Lymph % (Auto) 32 (24-44) % [place] % (Auto) 9 H (2-6) % Eos % (Auto) 2 (2-4) % Baso % (Auto) 0 (0-1) % Sodium 142 (140-148) mmol/L Potassium 3.7 (3.6-5.2) mmol/L Chloride 105 (100-108) mmol/L Carbon Dioxide 30 (21-32) mmol/L Anion Gap 6.7 (5.0-14.0) mmol/L BUN 10 (7-18) mg/dL Creatinine 1.1 H (0.6-1.0) mg/dL Est Cr Clr Drug Dosing 26.86 mL/min Estimated GFR (MDRD) 47 L (>60) Glucose 133 H (74-106) mg/dL Calcium 8.2 L (8.5-10.1) mg/dL Med Orders - Current: Current Medications Acetaminophen (Tylenol) 650 mg PO Q4H PRN PRN Reason: Pain (Mild 1-3)/fever Last Admin: 02/20/17 19:55 Dose: 650 mg Dextrose (Glutose 15) 15 gm PO ONETIME PRN PRN Reason: Hypoglycemia Dextrose/Water (Dextrose 50% In Water) 50 ml IV ONETIME PRN PRN Reason: Hypoglycemia Docusate Sodium (Colace) 100 mg PO BID PRN PRN Reason: Constipation Glyburide (Micronase) 2.5 mg PO DAILY [facility] Last Admin: 02/21/17 08:32 Dose: 2.5 mg Insulin Aspart (Novolog) 0 unit SUBCUT ASDIRECTED [facility] PRN Reason: Protocol Last Admin: 02/21/17 08:26 Dose: 3 units Insulin Detemir (Levemir) 5 unit SUBCUT DAILY [facility] Last Admin: 02/21/17 08:24 Dose: 5 units Lorazepam (Ativan) 0.5 mg IV Q6H PRN PRN Reason: Nausea/Vomiting Magnesium Hydroxide (Milk Of Magnesia) 30 ml PO Q12H PRN PRN Reason: Constipation Morphine Sulfate (Morphine) 2 mg IVPUSH Q2H PRN PRN Reason: Pain (severe 7-10) Nystatin (Mycostatin) 5 ml PO QID [facility] Last Admin: 02/21/17 09:59 Dose: 5 ml Ondansetron HCl (Zofran) 4 mg IVPUSH Q4H PRN PRN Reason: Nausea/Vomiting Oxycodone HCl (Oxycodone) 5 mg PO Q4H PRN PRN Reason: Pain (moderate 4-6) Pantoprazole [facility]) [facility] Raloxifene HCl (Evista) 60 mg PO DAILY [facility] Last Admin: 02/21/17 08:32 Dose: 60 mg Senna/Docusate Sodium (Senna Plus) 1 tab PO BID PRN PRN Reason: Constipation Sodium Chloride (Saline Flush) 10 ml FLUSH ASDIRECTED PRN PRN Reason: Keep Vein Open Discontinued Medications Hydromorphone HCl (Dilaudid) 0.5 mg IVPUSH ONETIME ONE Stop: 02/19/17 20:11 Last Admin: 02/19/17 20:29 Dose: 0.5 mg Lactated Ringer's (Ringers, Lactated) 1,000 mls @ 500 mls/hr IV ASDIRECTED [facility] Last Admin: 02/19/17 20:28 Dose: 500 mls/hr Sodium Chloride (Normal Saline) 70 mls @ 3 mls/sec IV ONETIME ONE Stop: 02/19/17 20:26 Last Admin: 02/20/17 03:01 Dose: Not Given Lactated Ringer's (Ringers, Lactated) 1,000 mls @ 500 mls/hr IV BOLUS ONE Stop: 02/20/17 00:47 Last Admin: 02/19/17 23:13 Dose: 500 mls/hr Insulin Aspart (Novolog) 4 unit SUBCUT QID PRN PRN Reason: Hyperglycemia Iopamidol (Isovue-300 (61%)) 81 ml IV . DIRECTED PRN PRN Reason: RADIOLOGY EXAM Stop: 02/19/17 20:26 Ondansetron HCl (Zofran) 4 mg IVPUSH ONETIME ONE Stop: 02/19/17 20:11 Last Admin: 02/19/17 20:29 Dose: 4 mg Pantoprazole Sodium (Protonix Iv) 40 mg IV DAILY [facility] Last Admin: 02/20/17 08:42 Dose: 40 mg Pantoprazole Sodium (Protonix Iv) 40 mg IV BID [facility] Last Admin: 02/21/17 08:33 Dose: 40 mg Prochlorperazine Edisylate (Compazine) 5 mg IVPUSH ONETIME ONE Stop: 02/19/17 22:49 Last Admin: 02/19/17 23:14 Dose: 5 mg Sodium Chloride (Saline Flush) 10 ml FLUSH ASDIRECTED PRN PRN Reason: Keep Vein Open Sodium Chloride (Saline Flush) 10 ml FLUSH ONETIME PRN PRN Reason: PER RADIOLOGY PROTOCOL *Q Meaningful Use (DIS) - VTE *Q VTE Criteria *Q: - Stroke *Q Stroke Criteria *Q: - AMI *Q AMI Criteria *Q:
[2017-02-21] MEDS ORDERED: Pantoprazole 40 MG Tab.CR PO SCH (16:30)
== END 2017-02-21 14:10 | disposition home or self-care (01) ==
LOC: JP.ED 18:55 → JP.MS 02-20 01:27
PROVIDERS: ADMIT Hospitalist; ATTEND Hospitalist
DX: A08.4 Viral intestinal infection, unspecified (principal); E11.9 Type 2 diabetes mellitus without complications; Z79.4 Long term (current) use of insulin; Z79.899 Other long term (current) drug therapy; Z88.0 Allergy status to penicillin; Z88.2 Allergy status to sulfonamides; Z88.8 Allergy status to other drugs, medicaments and biological substances; Z90.49 Acquired absence of other specified parts of digestive tract; Z98.890 Other specified postprocedural states
CPT/HCPCS: 36415; 74176; 80048; 80053; 81001; 82962; 83605; 83690; 85025; 87086; 96361; 96374; 96375; 96376; 99285; A9270; C9113; G0378; J0780; J1170; J2405; J7120; 99217; 99219